=== PATIENT | male | born 1945 | race Caucasian/White ===

== ENCOUNTER 2020-10-08 14:42 | Inpatient (IN) | payer MEDICARE, MEDICAID ==
[~2020-10-08] VITALS: Ht 175.3 cm; Wt 90.0 kg
[2020-10-08 15:35] LABS: HEMOGLOBIN 12.8 gm/dl (14.0-17.5); RED BLOOD COUNT 4.71 M/UL (4.20-5.50); WHITE BLOOD COUNT 15.5 K/UL (4.5-11.0)
[2020-10-08 16:03] LABS: BUN/CREATININE RATIO 44 (0-10)
[2020-10-09] MEDS ORDERED: HYDROCODON-ACE1 EAC6 PO (11:28)
[2020-10-09] MEDS ORDERED: JARDIANCE25 MG PO (11:29)
[2020-10-09] MEDS ORDERED: ATORVASTATIN CA20 MG PO (11:29)
[2020-10-09] MEDS ORDERED: METFORMIN ER G500 MG PO (11:30)
[2020-10-09] MEDS ORDERED: ALDACTONE 25MG25 MG PO (11:31)
[2020-10-10 03:29] LABS: HEMOGLOBIN 10.2 gm/dl (14.0-17.5); RED BLOOD COUNT 3.83 M/UL (4.20-5.50); WHITE BLOOD COUNT 9.7 K/UL (4.5-11.0)
[2020-10-10 03:52] LABS: BUN/CREATININE RATIO 29 (0-10)
--- NOTE | 2020-10-10 13:31 | NUR ---
10/10/20 1330 VERIFIED ALLERGIES WITH FAMILY [facility]
[2020-10-10] MEDS ORDERED: AZITHROMYCIN250 MG PO (14:07)
[2020-10-10] MEDS ORDERED: OMNICEF 300 MG300 MG PO (14:07)
[2020-10-10] MEDS ORDERED: FOLIC ACID 1 MG1 MG PO (14:07)
== END 2020-10-10 18:08 | disposition home health service (06) | DRG 193 ==
LOC: ER1 14:42 → CDU 18:03 → M/S 19:23
PROVIDERS: Physician Assistant; ADMIT Family Medicine
PROC: B24BZZZ Ultrasonography of Heart with Aorta (ICD-10-PCS; principal; 2020-10-09)
DX: J18.9 Pneumonia, unspecified organism (principal); G93.41 Metabolic encephalopathy; J96.21 Acute and chronic respiratory failure with hypoxia; E87.1 Hypo-osmolality and hyponatremia; E44.1 Mild protein-calorie malnutrition; Z20.822 Contact with and (suspected) exposure to COVID-19; H91.90 Unspecified hearing loss, unspecified ear; E11.9 Type 2 diabetes mellitus without complications; E53.8 Deficiency of other specified B group vitamins; E86.0 Dehydration; I87.2 Venous insufficiency (chronic) (peripheral); F17.210 Nicotine dependence, cigarettes, uncomplicated; E88.09 Other disorders of plasma-protein metabolism, not elsewhere classified; Z79.84 Long term (current) use of oral hypoglycemic drugs; Z79.899 Other long term (current) drug therapy; Z99.81 Dependence on supplemental oxygen; Z68.29 Body mass index [BMI] 29.0-29.9, adult
CPT/HCPCS: ECHO; 36415; 70450; 71045; 71250; 80053; 80307; 81001; 82140; 82550; 82553; 82607; 82746; 82962; 83036; 83605; 83735; 83874; 83880; 84100; 84439; 84443; 84484; 85025; 87040; 87077; 87086; 87186; 92610; 93005; 93306; 94640; 94664; 94760; 96374; 97162; 97166; 99285; G0480; J0456; J0696; J7030; U0002